=== PATIENT | male | born 1990 | race Two or more races ===

== ENCOUNTER 2019-06-11 14:25 | Emergency (ER) | payer OTHER ==
[~2019-06-11] VITALS: Ht 170.2 cm; Wt 70.3 kg
--- NOTE | 2019-06-11 14:30 | NUR ---
pt rec'd to er c/o seiiure iv startd labs absd ua sent to lab. pt sleeping
[2019-06-11] MEDS ORDERED: IV NS 0.9% 1,000 ML BAG IV ONE (15:30)
--- NOTE | 2019-06-11 15:30 | NUR ---
iv sluids given per md
[2019-06-11 15:31] LABS: BASOPHILS # (AUTO) 0.1 /CMM (0.0-0.2); BASOPHILS % (AUTO) 0.9 % (0.0-2.0); EOSINOPHILS % (AUTO) 1.7 % (0.0-6.0); HEMATOCRIT 38 % (39-51); HEMOGLOBIN 12.9 g/dL (13.5-17.5); LYMPHOCYTES # (AUTO) 1.4 /CMM (0.8-4.8); LYMPHOCYTES % (AUTO) 20.6 % (20.0-44.0); MEAN CORPUSCULAR HGB CONC 34 g/dl (31.0-36.0); MEAN CORPUSCULAR VOLUME 93 fL (80-96); MONOCYTES # (AUTO) 0.6 /CMM (0.1-1.30); MONOCYTES % (AUTO) 8.8 % (2.0-12.0); NEUTROPHILS # (AUTO) 4.6 /CMM (1.8-8.9); PLATELET COUNT (AUTO) 366 /CMM (150-450); RED BLOOD CELL COUNT(AUTO) 4.14 MIL/uL (4.5-6.0); WHITE BLOOD COUNT (AUTO) 6.8 K/uL (4.3-11.0)
[2019-06-11 15:43] LABS: CALCIUM, SERUM 9.1 mg/dL (8.5-10.1); CREATININE 0.8 mg/dL (0.6-1.3); POTASSIUM 3.6 mmol/L (3.5-5.1)
--- NOTE | 2019-06-11 17:59 | NUR ---
pt in [facility] ok for booking
--- NOTE | 2019-06-11 18:01 | NUR ---
PT. VERBALIZED UNDERSTANDING OF AFTERCARE INSTRUCTIONS.IV removed. Catheter intact and site benign. Pressure and 4x4 applied to site. No bleeding noted.Patient discharged to home in stable condition. Written and verbal after care instructions given. Patient verbalizes understanding of instruction.
[2019-06-11 18:02] VITALS: BP 135/80
== END 2019-06-11 18:04 ==
LOC: ER 14:31
DX: G40.909 Epilepsy, unspecified, not intractable, without status epilepticus (principal); F19.10 Other psychoactive substance abuse, uncomplicated; D64.9 Anemia, unspecified; F11.10 Opioid abuse, uncomplicated; F15.10 Other stimulant abuse, uncomplicated; Z02.89 Encounter for other administrative examinations; Z59.0 Homelessness
CPT/HCPCS: 36415; 80048; 80305; 83735; 85025; 85730; 99283; J7030

== ENCOUNTER 2019-08-25 21:44 | Inpatient (IN) | payer SELFPAY ==
[~2019-08-25] VITALS: Ht 175.3 cm; Wt 76.2 kg
[2019-08-25] MEDS ORDERED: LIDOCAINE 1%-EPI 1:100,000 20 ML VIAL TP ONE (22:30)
[2019-08-25] MEDS ORDERED: IV NS 0.9% 1,000 ML BAG IV ONE (22:30)
[2019-08-25] MEDS ORDERED: OLANZAPINE 10 MG VIAL IM ONE ×2 (22:30→22:33)
[2019-08-25] MEDS ORDERED: TDAP [DIPH/PERTUSSIS/TET] 0.5 ML VIAL IM ONE ×3 (22:30→22:38)
--- NOTE | 2019-08-25 22:30 | NUR ---
PT APPEARS AGGITATED, DRUG ABUSE NOTED, MULT FACIAL LACS NOTED. PT HAD AN 18G IV IN LAC LEG BREAKER. PT PULLED OUT IV. PT REC'D MEDICATION ORDERED. 20G IV WAS STARTED IN RUE. IV FLUID IS INFUSING AND PT IS ON THE MONITOR WITH CONTINUOUS PULSE OX. PT WAS PLACED ON 2L O2 VIA NC PRECAUSTION. PT'S O2 SAT IS 92% ON RA. PT'S SAT IS NOW 98% ON 2L. WILL CONTINUE TO MONITOR THE PT.
[2019-08-25] MEDS ORDERED: LIDOCAINE 1%-EPI 1:100,000 20 ML VIAL ONE (22:33)
[2019-08-25 22:39] LABS: BASOPHILS # (AUTO) 0.1 /CMM (0.0-0.2); BASOPHILS % (AUTO) 0.8 % (0.0-2.0); EOSINOPHILS % (AUTO) 1.4 % (0.0-6.0); HEMATOCRIT 42 % (39-51); HEMOGLOBIN 13.9 g/dL (13.5-17.5); LYMPHOCYTES # (AUTO) 1.3 /CMM (0.8-4.8); LYMPHOCYTES % (AUTO) 9.3 % (20.0-44.0); MEAN CORPUSCULAR HGB CONC 33 g/dl (31.0-36.0); MEAN CORPUSCULAR VOLUME 95 fL (80-96); MONOCYTES # (AUTO) 1.1 /CMM (0.1-1.30); MONOCYTES % (AUTO) 8.1 % (2.0-12.0); NEUTROPHILS # (AUTO) 11.2 /CMM (1.8-8.9); NEUTROPHILS % (AUTO) 80.4 % (43.0-81.0); PLATELET COUNT (AUTO) 316 /CMM (150-450); RED BLOOD CELL COUNT(AUTO) 4.48 MIL/uL (4.5-6.0); WHITE BLOOD COUNT (AUTO) 13.9 K/uL (4.3-11.0)
[2019-08-25 22:49] LABS: CALCIUM, SERUM 8.8 mg/dL (8.5-10.1); CARBON DIOXIDE 24 mmol/L (21-32); CHLORIDE 100 mmol/L (98-107); CREATININE 1.8 mg/dL (0.6-1.3); GLUCOSE 75 mg/dL (74-106); POTASSIUM 4.4 mmol/L (3.5-5.1); SODIUM SERUM 140 mmol/L (136-145); UREA NITROGEN, BLOOD 28 mg/dL (7-18)
[2019-08-25 22:53] LABS: ALANINE AMINOTRANSFERASE 193 U/L (12-78); ALBUMIN 3.8 g/dL (3.4-5.0); ALCOHOL, BLOOD < 3 mg/dL (0-0); ALKALINE PHOSPHATASE 98 U/L (46-116); ASPARTATE AMINOTRANSFERASE 331 U/L (15-37); BILIRUBIN,DIRECT 0.3 mg/dL (0.0-0.2); BILIRUBIN,TOTAL 0.8 mg/dL (0.2-1.0); TOTAL PROTEIN, SERUM 7.6 g/dL (6.4-8.2)
[2019-08-25 22:55] LABS: ACETAMINOPHEN 0 ug/ml (10-30); SALICYLATE 1.1 mg/dL (2.8-20.0)
[2019-08-25] MEDS ORDERED: LORAZEPAM INJ 2 MG/ML VIAL ONE (23:56)
--- NOTE | 2019-08-25 23:59 | NUR ---
PT RETURNED FROM CT.
[2019-08-26] MEDS ORDERED: LORAZEPAM INJ 2 MG/ML VIAL IV ONE
--- NOTE | 2019-08-26 00:29 | NUR ---
PT'S IV INFILTRATED. IV FLUID STOPPED AND MD NOTIFIED. IV removed. Catheter intact and site benign. Pressure and 4x4 applied to site. No bleeding noted. MD NOTIFIED.
--- NOTE | 2019-08-26 02:27 | NUR ---
Pt resting supine in bed w/ resp even & unlabored, able to turn self in bed w/ no acute distress noted. Bed low to ground w/ siderails up for safety. Will continue to monitor.
--- NOTE | 2019-08-26 03:32 | NUR ---
pt continues to sleep in bed, repositioning self w/ resp even & unlabored, bed low to ground w/ siderails up for safety, on continuous monitoring.
--- NOTE | 2019-08-26 05:24 | NUR ---
PT LEFT FOR CT WITH XIAO SANDERS AND GLENDA REFINERY TECHNICIAN.
--- NOTE | 2019-08-26 05:38 | NUR ---
PT RETURNED FROM CT.
--- NOTE | 2019-08-26 06:23 | NUR ---
PT APPEARS TO BE RESTING COMFORTABLY WITH NO S/S OF PAIN OR DISTRESS. WILL CONTINUE TO MONITOR THE PT.
[2019-08-26] MEDS ORDERED: IV NS 0.9% 1,000 ML BAG IV ONE (15:00)
--- NOTE | 2019-08-26 15:30 | NUR ---
PROGRAM ANALYST MEL AT BEDSIDE
--- NOTE | 2019-08-26 15:53 | NUR ---
Social service consult requested by YOEL Laws for drug use and possible homelessness. Pt. is a 29 year old male who was brought to [facility] via ambulance yesterday after he was found banging his head against a tree. He then went inside the store and started banging his head against the counter and multiple other objects sustaining lacerations to his forehead. Pt. was initially placed on 4 point restraints. Upon evaluation, pt. had one point restraint. SW attempted to asses the pt. bedside, however pt. is not cooperative with SW and stated, " I am not going to talk to you, I just want to leave." FLORA updated YOEL Barrett regarding pt. refusing to speak with SW.
--- NOTE | 2019-08-26 16:50 | NUR ---
pt unable to ambulate steadily at this time. keegan alcantar made aware.
[2019-08-26] MEDS ORDERED: Z GUARD REMEDY 2 OZ OINT TP PRN (19:00)
[2019-08-26] MEDS ORDERED: ONDANSETRON HCL/PF 4 MG/2 ML VIAL IVP PRN (19:00)
[2019-08-26] MEDS ORDERED: MAGNESIUM HYDROXIDE 30 ML UDC PO PRN (19:00)
[2019-08-26] MEDS ORDERED: ACETAMINOPHEN 325 MG TABLET PO PRN (19:00)
[2019-08-26] MEDS ORDERED: MAG HYDROX/AL HYDROX/SIMETH 30 ML UDC PO PRN (19:00)
--- NOTE | 2019-08-26 20:07 | NUR ---
NURSING SUP GAVE BED 119-1.
--- NOTE | 2019-08-26 21:09 | NUR ---
CALLED FOR REPORT. NURSE BUSY
--- NOTE | 2019-08-26 21:30 | NUR ---
report given to chris morrow.
--- NOTE | 2019-08-26 22:05 | NUR ---
MS DIETARY WORKER NOTE: PT ADMITTED FROM ER VIA [facility] WITH ADMITTING DIAGNOSIS OF ACUTE ENCEPHALOPATHY. PT IS AWAKE, VERBALLY RESPONSIVE WITH NO APPARENT DISTRESS NOTED. NO COMPLAINTS OF PAIN OR DISCOMFORT. ON ROOM AIR, NO SOB NOTED. INSERTED IV ON RIGHT HAND #20, INTACT AND FLUSHING WELL. PT ABLE TO AMBULATE WITH ASSISTANCE. PT NPO HOWEVER, SOON HE ARRIVED FROM ER HE INSISTED ON DRINKING WATER BECAUSE HE SAID THAT HE WAS REALLY THIRSTY, EXPLAINED TO HIM THAT HE'S NPO PER MD ORDER BUT STILL NON COMPLIANT. ANATOMY AND PHYSIOLOGY INSTRUCTOR GRAVEL WHEELER FRANKY MADE AWARE. PERTINENT ASSESSMENTS DONE. PT HAS A LOT OF SCRATCHES/LACERATION, PICTURES TAKEN AND PLACED ON CHART. KEPT CLEAN, DRY AND COMFORTABLE. SAFETY AND FALL PRECAUTIONS OBSERVED AND MAINTAINED. WILL CONTINUE TO MONITOR PT.
[2019-08-26 22:41] VITALS: BP 123/89
[2019-08-27 04:00] VITALS: BP 135/80
--- NOTE | 2019-08-27 06:37 | NUR ---
MS RN NOTE: PT IN BED ASLEEP BUT AROUSES EASILY TO VERBAL AND TACTILE STIMULI. PT NON COMPLIANT, KEPT GOING TO THE BATHROOM TO DRINK WATER ON THE SINK AND GETS AGITATED WHEN TRIED TO EDUCATE HIM REGARDING HIS DIET. CHARGE NURSE AWARE. BILATERAL UPPER EXTREMITIES WARM TO TOUCH, WOUND CONSULT ORDERED. KEPT CLEAN, DRY AND COMFORTABLE. SAFETY AND FALL PRECAUTIONS OBSERVED AND MAINTAINED. WILL ENDORSE TO DAY SHIFT RN FOR CONTINUITY OF CARE.
[2019-08-27 07:20] LABS: BASOPHILS % (AUTO) 0.4 % (0.0-2.0); EOSINOPHILS % (AUTO) 2.4 % (0.0-6.0); HEMATOCRIT 39 % (39-51); HEMOGLOBIN 12.8 g/dL (13.5-17.5); LYMPHOCYTES % (AUTO) 12.1 % (20.0-44.0); MEAN CORPUSCULAR HGB CONC 33 g/dl (31.0-36.0); MEAN CORPUSCULAR VOLUME 94 fL (80-96); MONOCYTES # (AUTO) 1.1 /CMM (0.1-1.30); NEUTROPHILS # (AUTO) 5.8 /CMM (1.8-8.9); NEUTROPHILS % (AUTO) 72.1 % (43.0-81.0); PLATELET COUNT (AUTO) 279 /CMM (150-450); RED BLOOD CELL COUNT(AUTO) 4.16 MIL/uL (4.5-6.0); WHITE BLOOD COUNT (AUTO) 8.1 K/uL (4.3-11.0)
[2019-08-27 07:34] LABS: CALCIUM, SERUM 7.8 mg/dL (8.5-10.1); MAGNESIUM 2.4 mg/dL (1.8-2.4); PHOSPHORUS 1.8 mg/dL (2.5-4.9); POTASSIUM 2.9 mmol/L (3.5-5.1)
--- NOTE | 2019-08-27 07:40 | NUR ---
RN OPENING NOTES RECEIVED PATIENT SLEEPING IN BED, EASILY AROUSED. HE IS AOX1, VERBAL, AND AMBULATORY. HE IS ON RA, TOLERATING WELL, SHOWS NO S/SX OF RESP DISTRESS OR SOB. HE HAS MULTIPLE LACERATIONS ON BUE AND ON FOREHEAD, WOUND CONSULT PENDING. PT IS NPO, PER NIGHTSHIFT RN PT IS NON-COMPLIANT. HE HAS A R HAND 20 G SL, INTACT AND PATENT. SAFETY MEASURES HAVE BEEN IMPLEMENTED, CALL LIGHT IS WITHIN REACH, BED IS IN LOWEST AND LOCKED POSITION, SIDE RAILS UP X2, WILL CONTINUE TO MONITOR FOR ANY CHANGES.
[2019-08-27 08:00] VITALS: BP 128/77
[2019-08-27] MEDS ORDERED: POTASSIUM CHLORIDE 10 MEQ/50 ML PREMIXED IVPB FOR PERIPHERAL LINE IV ONE (09:30)
[2019-08-27] MEDS ORDERED: IV NS 0.9% 1,000 ML BAG IV PRN (09:30)
[2019-08-27] MEDS: IV NS 0.9% 1,000 ML IV PRN (09:48)
[2019-08-27] MEDS: POTASSIUM CL. PREMIX PERIPHER. 50 ML IV SCH ×6 (10:01→15:43)
[2019-08-27] MEDS ORDERED: Sodium Phosphate 15 MMOL in IV D5W 250 ML IV ONE (12:00)
[2019-08-27 16:00] VITALS: BP 109/64
--- NOTE | 2019-08-27 18:53 | NUR ---
RN CLOSING NOTES PATIENT IS RESTING IN BED COMFORTABLY AT THIS TIME. PT HAS BEEN ASLEEP THROUGHOUT THE WHOLE DAY, GOT UP FROM BED ONLY ONCE FOR THE BATHROOM. ELECTROLYTES HAVE BEEN REPLACED. NO ACUTE CHANGES OCCURRED THROUGHOUT THE SHIFT, VITAL SIGNS ARE STABLE, PT NEEDS HAVE BEEN MET. SAFETY MEASURES HAVE BEEN IMPLEMENTED, CALL LIGHT IS WITHIN REACH, BED IS IN LOWEST AND LOCKED POSITION, SIDE RIALS UP X2, WILL ENDORSE TO NIGHTSHIFT RN FOR CONTINUITY OF CARE.
--- NOTE | 2019-08-27 19:50 | NUR ---
RN NOTES RECEIVED PATIENT RESTING IN BED COMFORTABLY AT THIS TIME. PT HAS BEEN ASLEEP THROUGHOUT THE WHOLE DAY, PER AM NURSE, GOT UP FROM BED ONLY ONCE FOR THE BATHROOM. ELECTROLYTES HAVE BEEN REPLACED BY AM NURSE ORDERED, NO SIGNS OF ACUTE RESPIRATORY DISTRESS NOTED, VITAL SIGNS ARE STABLE, PT NEEDS HAVE BEEN MET. SAFETY MEASURES IN PLACED, CALL LIGHT IS WITHIN REACH, BED IS IN LOWEST AND LOCKED POSITION, SIDE RIALS UP X2, WILL CONTINUE TO MONITOR ACCORDINGLY.
[2019-08-28 00:20] VITALS: BP 131/77
[2019-08-28] MEDS: IV NS 0.9% 1,000 ML IV PRN (06:38)
--- NOTE | 2019-08-28 07:22 | NUR ---
RN NOTES ABLE TO REST AND SLEPT AT INTERVALS. SITTER AT BEDSIDE. NO SIGNS OF ACUTE DISTRESS NOTED.PATIENT RESTING IN BED COMFORTABLY AT THIS TIME. PT HAS BEEN ASLEEP THROUGHOUT THE WHOLE DAY, PER AM NURSE, GOT UP FROM BED ONLY ONCE FOR THE BATHROOM. ELECTROLYTES HAVE BEEN REPLACED BY AM NURSE ORDERED, NO SIGNS OF ACUTE RESPIRATORY DISTRESS NOTED, VITAL SIGNS ARE STABLE, PT NEEDS HAVE BEEN MET. SAFETY MEASURES IN PLACED, CALL LIGHT IS WITHIN REACH, BED IS IN LOWEST AND LOCKED POSITION, SIDE RIALS UP X2 ENDORSED TO AM NURSE FOR CONTINUITY OF CARE.
[2019-08-28 08:00] VITALS: BP 115/68
[2019-08-28] MEDS ORDERED: Sodium Phosphate 15 MMOL in IV D5W 250 ML IV ONE (11:00)
[2019-08-28 12:00] VITALS: BP 131/77
--- NOTE | 2019-08-28 17:00 | NUR ---
PATIENT IS NOW AWAK AND ALERT X 3. FOLLOWS COMMANDS. STATES VERY HUNGRY AND WANTING TO EAT. DR ESCOBEDO CALLED AND ORDERS RECIEVED. PT UP WITH ASSISTANCE AND VOIDED IN BATHROOM. ATE TWO TRAYS . IV OF NA PHOSPHATE 15 MM ALL INFUSED NO S/S OF ANY WITHDRAWAL NOTED.
[2019-08-29] MEDS: IV NS 0.9% 1,000 ML IV PRN (02:49)
[2019-08-29 07:05] LABS: BASOPHILS % (AUTO) 0.8 % (0.0-2.0); EOSINOPHILS % (AUTO) 6.7 % (0.0-6.0); HEMATOCRIT 38 % (39-51); HEMOGLOBIN 12.8 g/dL (13.5-17.5); LYMPHOCYTES # (AUTO) 1.1 /CMM (0.8-4.8); LYMPHOCYTES % (AUTO) 23.5 % (20.0-44.0); MEAN CORPUSCULAR HGB CONC 34 g/dl (31.0-36.0); MEAN CORPUSCULAR VOLUME 93 fL (80-96); MONOCYTES # (AUTO) 0.6 /CMM (0.1-1.30); MONOCYTES % (AUTO) 13.8 % (2.0-12.0); NEUTROPHILS # (AUTO) 2.5 /CMM (1.8-8.9); NEUTROPHILS % (AUTO) 55.2 % (43.0-81.0); PLATELET COUNT (AUTO) 303 /CMM (150-450); RED BLOOD CELL COUNT(AUTO) 4.06 MIL/uL (4.5-6.0); WHITE BLOOD COUNT (AUTO) 4.6 K/uL (4.3-11.0)
--- NOTE | 2019-08-29 07:20 | NUR ---
MS RN OPENING NOTE: PATIENT IN BED. ASLEEP AND AROUSABLE. PREFERS TO REST AND SLEEP. REFUSED ASSESSMENT AND APPEARS AGITATED AND NOT COOPERATIVE TO CERTAIN ASSESSMENT QUESTIONS. RIGHT ARM WITH SLEEVE AND DRESSING AND IV SITE AT THE RIGHT ARM WITH INFUSION OF 0.9% NS AT 100ML/HR, INFUSING WELL. PATIENT REFUSED ASSESSMENT OF SKIN UNDER THE SLEEVE AND DRESSING.. ON ROOM AIR AND TOLERATING WELL AT 95% SATURATION. NO SOB, NOT IN DISTRESS. NO PAIN NOTED OR REPORTED. BED LOCKED, LOW AND AT SEMI-FLORENCE'S POSITION. SIDE RAILS UP, CALL LIGHT IN REACH. WILL CONTINUE TO MONITOR.
[2019-08-29 07:27] LABS: CALCIUM, SERUM 7.9 mg/dL (8.5-10.1); CREATININE 0.7 mg/dL (0.6-1.3); PHOSPHORUS 2.5 mg/dL (2.5-4.9); POTASSIUM 3.3 mmol/L (3.5-5.1)
[2019-08-29 08:00] VITALS: BP_SYST 103; BP_SYST 119; BP_DIAS 71; BP_DIAS 72
--- NOTE | 2019-08-29 08:22 | NUR ---
WOUND CARE CONSULT: PT REFUSED SKIN ASSESSMENT. PER NURSING REPORT, THERE ARE SUTURED LACERATIONS, PRESENT ON ADMISSION. PER NURSING STAFF, PT IS CONTINENT AND AMBULATES TO BATHROOM. WILL SEE PRN.
[2019-08-29] MEDS ORDERED: POTASSIUM CHLORIDE 20 MEQ TAB.PRT.SR PO SCH (10:00)
--- NOTE | 2019-08-29 10:30 | NUR ---
MS RN NOTE: PATIENT WAS SEEN BY DR. ESCOBEDO WITH DISCHARGE ORDERS GIVEN. PATIENT ALREADY REMOVED HIS IV SITE BY HIMSELF. 1 DOSE OF KDUR 20MEQ PO GIVEN FOR POTASSIUM LEVEL OF 3.3. PATIENT REFUSES TO HAVE PICTURES TAKEN FOR HIS SKIN ISSUES FOR DISCHARGE PURPORSE. STATES THAT HE WANTS TO LEAVE RIGHT NOW AND INFORMED HIM THAT HIS PAPER WORKS NEED TO BE PROCESSED FIRST AND REVIEW AND SIGNED THEN HE CAN LEAVE AFTER THE PROCESS. VERBALLY ACKNOWLEDGED EXPLANATION.
--- NOTE | 2019-08-29 10:45 | NUR ---
MS RN NOTE: RECEIVED REPORT FROM AMANDA MAGANA THAT PATIENT IS NOWHERE TO BE FOUND AT HIS ROOM. STAFF SEARCHED UNIT FOR PATIENT, HE WAS NOT FOUND. CONTACTED [employer] AND WAS INFORMED THAT NO ONE PASSED BY MATCHING THE PATIENT'S DESCRIPTION. CONTINUED TO SEARCH FOR THE PATIENT ON NEARBY EXITS BUT WAS NOT FOUND. PATIENT HAS ELOPED THE FACILITY. HE DID NOT RECEIVE HIS EXITCARE INSTRUCTION, NO PAPERWORKS WERE SIGNED, ATTEMPTED TO REACH PATIENT WITH CONTACT NUMBER LISTED ON FACE SHEET BUT CANNOT BE CONTACTED. NO VOICEMAIL OPTION WAS AVAILABLE. INFORMED DR. ESCOBEDO OF THE PATIENT'S ELOPEMENT. INCIDENT REPORT WILL BE MADE BY THE RN .
--- NOTE | 2019-08-29 11:00 | NUR ---
Social service consult requested by Dr. Davila for possible homelessness and drug use. FLORA is familiar with the pt. from seeing him in the ED on Thursday, when he was uncooperative with FLORA. FLORA was unable to assess pt. today, because pt. eloped from the facility this morning. Pt. was medically cleared for discharge when he eloped.
== END 2019-08-29 10:00 | disposition home or self-care (01) | DRG 917 ==
LOC: ER 21:47 → EDBD 21:47 → MERGE 21:47 → MEDSG1 08-26 22:02
PROVIDERS: ADMIT Family Medicine; ATTEND Family Medicine
PROC: 0HQ1XZZ Repair Face Skin, External Approach (ICD-10-PCS; principal; 2019-08-26)
DX: T42.4X1A Poisoning by benzodiazepines, accidental (unintentional), initial encounter (principal); N17.0 Acute kidney failure with tubular necrosis; G92 Toxic encephalopathy; S01.81XA Laceration without foreign body of other part of head, initial encounter; E87.6 Hypokalemia; S01.112A Laceration without foreign body of left eyelid and periocular area, initial encounter; S01.111A Laceration without foreign body of right eyelid and periocular area, initial encounter; D72.829 Elevated white blood cell count, unspecified; Z78.1 Physical restraint status; T40.601A Poisoning by unspecified narcotics, accidental (unintentional), initial encounter; T43.621A Poisoning by amphetamines, accidental (unintentional), initial encounter; Y92.89 Other specified places as the place of occurrence of the external cause; R79.89 Other specified abnormal findings of blood chemistry
CPT/HCPCS: 36415; 70450-TC; 70486-TC; 72125-TC; 80048-TC; 80061-TC; 80076-TC; 80305; 83735-TC; 84100-TC; 85025-TC; 87081-TC; 90715; A6403; A9563; G0378; G0480; J2060; J3480; J3490; J7030; J7060

== ENCOUNTER 2022-02-22 20:58 | Emergency (ER) | payer OTHER ==
[~2022-02-22] VITALS: Ht 170.2 cm; Wt 63.5 kg
--- NOTE | 2022-02-22 21:15 | NUR ---
LAB AT BEDSIDE
--- NOTE | 2022-02-22 21:16 | NUR ---
TO ER BED 14. ALEJANDRA/ FROM THE STREETS, OTB NO COMPLAINTS NEEDS MED CLEARANCE FOR BOOKING. PER EMS PT TOOK "METH OR [facility]". PT IS DROWSY BUT FOLLOWS SIMPLE COMMANDS. CONNECTED TO MONITOR. AWAITNG MD MO
[2022-02-22 21:33] LABS: BASOPHILS # (AUTO) 0.1 K/uL (0.0-0.2); BASOPHILS % (AUTO) 0.7 % (0.0-2.0); EOSINOPHILS % (AUTO) 2.4 % (0.0-6.0); HEMATOCRIT 38 % (39-51); HEMOGLOBIN 12.4 g/dL (13.5-17.5); LYMPHOCYTES # (AUTO) 1.6 K/uL (0.8-4.8); LYMPHOCYTES % (AUTO) 22.2 % (20.0-44.0); MEAN CORPUSCULAR HGB CONC 33 g/dl (31.0-36.0); MEAN CORPUSCULAR VOLUME 88 fL (80-96); MONOCYTES # (AUTO) 0.5 K/uL (0.1-1.30); MONOCYTES % (AUTO) 6.7 % (2.0-12.0); PLATELET COUNT (AUTO) 378 K/uL (150-450); RED BLOOD CELL COUNT(AUTO) 4.32 MIL/uL (4.5-6.0); WHITE BLOOD COUNT (AUTO) 7.4 K/uL (4.3-11.0)
[2022-02-22 21:48] LABS: CALCIUM, SERUM 9.2 mg/dL (8.5-10.1); CARBON DIOXIDE 31 mmol/L (21-32); CHLORIDE 104 mmol/L (98-107); CREATININE 1.2 mg/dL (0.6-1.3); GLUCOSE 118 mg/dL (74-106); POTASSIUM 4.2 mmol/L (3.5-5.1); SODIUM SERUM 140 mmol/L (136-145); UREA NITROGEN, BLOOD 22 mg/dL (7-18)
[2022-02-22 21:54] LABS: ALANINE AMINOTRANSFERASE 15 U/L (12-78); ALBUMIN 3.2 g/dL (3.4-5.0); ALCOHOL, BLOOD < 3 mg/dL (0-0); ALKALINE PHOSPHATASE 96 U/L (46-116); ASPARTATE AMINOTRANSFERASE 15 U/L (15-37); BILIRUBIN,DIRECT 0.1 mg/dL (0.0-0.2); BILIRUBIN,TOTAL 0.2 mg/dL (0.2-1.0); TOTAL PROTEIN, SERUM 8.1 g/dL (6.4-8.2)
[2022-02-22 21:55] LABS: ACETAMINOPHEN < 0 ug/ml (10-30)
--- NOTE | 2022-02-22 22:25 | NUR ---
URINE SAMPLE COLLECTED AND SENT TO LAB
[2022-02-22] MEDS ORDERED: hydrOXYzine HCL INJ 50 MG/ML VIAL IM ONE (22:30)
[2022-02-22] MEDS ORDERED: hydrALAZINE HCL 50 MG TABLET ONE (22:41)
[2022-02-22 22:47] LABS: BILIRUBIN,URINE NEGATIVE (NEGATIVE); COLOR,URINE YELLOW (YELLOW); LEUKOCYTE ESTERASE ,URINE NEGATIVE (NEGATIVE); NITRITE, URINE NEGATIVE (NEGATIVE); PH,URINE 7.5 (5.0-8.0); UGLUCOSE NEGATIVE (NEGATIVE); UROBILINOGEN,URINE 0.2 EU/dL (0.2)
--- NOTE | 2022-02-22 22:47 | NUR ---
PT IS MEDICALLY CLEARED FOR INCARCERATION AND RELEASED UNDER THE CARE OF 2 [employer] OFFICER IN STABLE CONDITION. PT IS AMBULATORY ON STEADY GAIT
[2022-02-22 22:48] LABS: PROTEIN,URINE NEGATIVE (NEGATIVE)
[2022-02-22 22:49] VITALS: BP 124/78
== END 2022-02-22 22:50 ==
LOC: ER 20:58
DX: F11.93 Opioid use, unspecified with withdrawal; Z86.69 Personal history of other diseases of the nervous system and sense organs
CPT/HCPCS: 36415; 80048-TC; 80076-TC; 85025-TC; G0480